=== PATIENT | male | born 1970 | race Caucasian/White ===

== ENCOUNTER → 2020-06-22 | Outpatient (CLI) | payer OTHER | LOC: EMI 13:34 | DX: M19.072 Primary osteoarthritis, left ankle and foot (principal); D36.7 Benign neoplasm of other specified sites; M77.52 Other enthesopathy of left foot and ankle; M77.32 Calcaneal spur, left foot | CPT/HCPCS: 73721 ==

== ENCOUNTER → 2021-02-06 | Outpatient (CLI) | payer OTHER | LOC: KOH-I 09:01 | DX: M25.572 Pain in left ankle and joints of left foot (principal) | CPT/HCPCS: 73610 ==

== ENCOUNTER → 2022-01-23 | Outpatient (CLI) | payer OTHER | LOC: KOH-I 09:16 | DX: M25.572 Pain in left ankle and joints of left foot (principal); M79.672 Pain in left foot; M19.072 Primary osteoarthritis, left ankle and foot | CPT/HCPCS: 73610; 73630 ==

== ENCOUNTER → 2022-03-07 | Outpatient (CLI) | payer OTHER | LOC: KOH-I 14:04 | DX: S93.422A Sprain of deltoid ligament of left ankle, initial encounter (principal); M25.372 Other instability, left ankle | CPT/HCPCS: 73721 ==